=== PATIENT | female | born 1990 | race Hispanic/Latino ===

== ENCOUNTER → 2025-03-26 | Outpatient (CLI) | payer MEDICAID ==
--- NOTE | 2025-03-27 00:08 | HMCIMG ---
EXAM: CT Head Without IV Contrast CLINICAL HISTORY: Hydrocephalus, unspecified. TECHNIQUE: Axial computed tomography images of the head/brain obtained without intravenous contrast. Dose information: Total DLP ??? 886 mGy???cm. COMPARISON: None available. FINDINGS: BRAIN: No evidence of acute intracranial haemorrhage or mass lesion. No CT evidence of acute territorial infarct. Loss of volume involving the bilateral parieto-occipital lobes with associated ex vacuo dilatation of the occipital horns. Subdural hygromas seen along the bilateral high fronto-parietal convexities, measuring up to 1.0 cm in thickness, without significant mass effect. 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 VENTRICLES AND SHUNT: A ventricular shunt catheter is seen entering from the right parietal approach, traversing the lateral ventricle, with the tip positioned in the left frontal horn. Ventricular system shows mild asymmetry but no evidence of acute hydrocephalus or pericatheter haemorrhage. BASAL GANGLIA, THALAMI, AND POSTERIOR FOSSA: Normal attenuation and morphology. No focal lesion or mass effect. ORBITS: Normal. No abnormal intraorbital soft tissue density. SINUSES AND MASTOIDS: Paranasal sinuses and mastoid air cells are clear. CALVARIUM AND BONES: No acute fracture or destructive osseous lesion. SCALP AND SOFT TISSUES: Shunt tract visualised in the right parietal scalp, otherwise unremarkable. IMPRESSION: * Right parietal ventriculoperitoneal shunt with catheter tip in left frontal horn; no acute hydrocephalus or pericatheter complication. * Bilateral parieto-occipital volume loss with ex vacuo dilatation of occipital horns. * Subdural hygromas along bilateral high fronto-parietal convexities (up to 1 cm) without mass effect. 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 * No acute intracranial haemorrhage or infarction. /[place]addy
--- NOTE | 2025-03-27 00:17 | HMCIMG ---
EXAM: SHUNT SERIES, 7 VIEWS CLINICAL INFORMATION: Evaluation of shunt location and patency. TECHNIQUE: Frontal and lateral skull, cervical spine/neck, chest, and abdominal radiographs. COMPARISON: None provided. FINDINGS: SKULL: Ventricular catheter enters via a right frontal approach with the tip projecting over the region of the left lateral ventricle. NECK: Shunt tubing courses inferiorly along the right side of the neck. CHEST: Shunt tubing continues along the right chest without focal discontinuity or obvious kinking. ABDOMEN/PELVIS: Distal catheter courses into the abdomen with the tip terminating in the pelvis. DEVICES/OTHER: No disconnected components are identified on the visualized course. IMPRESSION: * Right frontal ventriculoperitoneal shunt with catheter tip projecting over the left lateral ventricle and distal tubing coursing through the right neck and chest to terminate in the pelvis. * No radiographic evidence of shunt discontinuity or disconnection identified. * Note: Patency cannot be assessed on radiographs; correlate clinically and consider CT/rapid MRI brain and/or shunt series pumping/valve assessment or nuclear shunt study if there is concern for malfunction. /[place]
== END | disposition home or self-care (01) ==
LOC: RAH 13:40
PROVIDERS: ATTEND Neurological Surgery
DX: G96.08 Other cranial cerebrospinal fluid leak (principal); G91.9 Hydrocephalus, unspecified; Z98.2 Presence of cerebrospinal fluid drainage device
CPT/HCPCS: 70450; 75809